=== PATIENT | male | born 1950 | race Caucasian/White ===

== ENCOUNTER 2016-08-10 06:05 | Day surgery (SDC) | payer MEDICARE, OTHER ==
[~2016-08-10] VITALS: Ht 188 cm; Wt 183.5 kg
[~2016-08-10 06:05] MED LIST: ASPI-93 PO; ATEN-36 PO; FURO-154 PO; PLEXUS PROBIO PO; PLEXUS SLIM PO; POTA10TA16 PO; [UNRECOGNIZED DRUG - OTHER] PO
--- OUTSIDE RECORDS SUMMARY | 2016-08-10 06:08 | XMS REPORT ---
Author Author Michael Sánchez Organization e[employer] Address Unknown Phone Unavailable Care Team Providers Care Quality Assurance Coordinator Name Role Phone Michael Sánchez CP Unavailable Allergies No Known Allergies Problems Problem Type Condition Code Onset Dates Condition Status Problem Gastro-esophageal reflux disease without esophagitis K21.9 Active Problem Morbid (severe) obesity due to excess calories E66.01 Active Problem Unspecified diastolic (congestive) heart failure I50.30 Active Problem Chronic atrial fibrillation I48.2 Active Assessment Unspecified diastolic (congestive) heart failure I50.30 Active Medications Medication Code System Code Instructions Start Date End Date Status Dosage Potassium Chloride Aminata ER [facility] [address]-44 10 MEQ Orally once daily Jan 13, 2016 1 tablet Lasix [facility] NAMED [facility] [address]-14 20 MG Orally every 12 hours Jan 13, 2016 1 tablet Aspirin EC [facility] NAMED [facility] [address]-74 325 MG Orally Once a day Jan 13, 2016 July 11, 2016 1 tablet Atenolol [facility] NAMED [facility] [address]-81 25 MG Orally Once a day 1 tablet Procedures Procedure Coding System Code Date COMPLETE CBC W/AUTO DIFF WBC CPT-4 95066 Feb 24, 2016 Results Name Result Date Reference Range Unit Abnormality Flag CBC With Platelet and Differential ----Absolute Eosinophils 0.07 [id number] 0.00-0.50 10*3 ----Absolute Monocytes 0.66 05636020 0.30-1.00 10*3 ----Neutrophils 60 44402877 51-75 % ----Absolute Basophils 0.03 17086859 0.00-0.20 10*3 ----MPV 10.4 41945815 8.8-14.8 fL ----Monocytes 10 09205742 4-11 % ----RDW 13.2 40045008 11.5-14.5 % ----Lymphocytes 29 47488733 20-46 % ----MCHC 33.5 15050613 32.0-36.0 g/dL ----MCH 32.6 53162698 27.0-32.0 pg H ----MCV 97.3 13112349 82.0-99.0 fL ----Immature Granulocytes 0.1 77051614 0.0-1.0 % ----Platelet Count 168 [id number] 150-400 K/uL ----Absolute Lymphocytes 1.96 71168256 0.80-3.30 10*3 ----Absolute Neutrophils 4.12 46521178 1.90-7.00 10*3 ----Eosinophils 1 80055903 0-4 % ----Basophils 0 44507586 0-2 % ----WBC 6.8 71370609 4.8-10.8 K/uL ----RBC 4.42 [id number] 4.60-6.20 10*6/uL L ----HGB 14.4 12959957 14.0-18.0 g/dL ----HCT 43.0 54141527 42.0-52.0 % Summary Purpose eClinicalWorks Submission
--- OUTSIDE RECORDS SUMMARY | 2016-08-10 06:08 | XMS REPORT | Summary of Care ---
Author Author Ren Marin M.D. Unknown Address [address] [place] [address] [place] [address] Phone Unavailable Care Team Providers Care Immersion Metalcleaner Name Role Phone Michael Sánchez Unavailable Unavailable Unavailable Unavailable Functional Status Name Dates Details Functional status health issues are not documented Status: Name Dates Details Cognitive status health issues are not documented Status: Problems Name Dates Details Sleep apnea (780.57, G47.30) Status: Active History of Ureteral stricture, left (593.3, N13.5) Status: Resolved History of Left ureteral calculus (592.1, N20.1) Status: Resolved Hematuria (599.70, R31.9) Status: Active Right kidney stone (592.0, N20.0) Status: Active Medications Name Dates Details Atenolol 25 MG Oral Tablet Active Aspirin EC 325 MG Oral Tablet Delayed Release * Refills: 0 Active Lasix 20 MG Oral Tablet * Refills: 0 Active Potassium Chloride 10 MEQ TBCR * Refills: 0 Active Allergies and Adverse Reactions Name Dates Details No Known Allergies (Allergy) Status: Active Past Medical History Name Dates Details History of atrial fibrillation (V12.59, Z86.79) Status: Resolved History of Left ureteral calculus (592.1, N20.1) Status: Resolved History of Postoperative follow-up (V67.00, Z09) Status: Resolved History of Prophylactic antibiotic (V58.62, Z79.2) Status: Resolved History of Ureteral stricture, left (593.3, N13.5) Status: Resolved History of Water retention (276.69, E87.70) Status: Resolved Procedures Procedure Dates Details History of Reported Hx Of Hip Replacement - Bilateral History of Cystoscopy (Diagnostic) History of Cystoscopy With Insertion Of Urethral Stent History of Cystoscopy With Pyeloscopy With Lithotripsy Procedures not documented Immunization Name Dates Details Immunizations not documented Family History Name Dates Details No family history of breast cancer Comments: Family History Status: Active Name Dates Details Family history of kidney disease (V18.69, Z84.1) Status: Active Family history of cerebrovascular accident (CVA) (V17.1, Z82.3) Status: Active Name Dates Details Family history of malignant neoplasm of testis (V16.43, Z80.43) Status: Active Social History Name Dates Details - Status: Name Dates Details Former smoker Vital Signs Date Test Result Details 03-Feb-2016 09:36 BP Systolic 126 mm[Hg] Status: Comments: Location: ; Position: BP Diastolic 68 mm[Hg] Status: Comments: Location: ; Position: Heart Rate 82 /min Status: Comments: Location: ; Height 74 in Status: Weight 400 lb Status: Body Mass Index Calculated 51.36 kg/m2 Status: Body Surface Area Calculated 2.92 m2 Status: 29-Jan-2016 14:27 BP Systolic 114 mm[Hg] Status: Comments: Location: ; Position: BP Diastolic 74 mm[Hg] Status: Comments: Location: ; Position: Heart Rate 88 /min Status: Comments: Location: ; Height 74 in Status: Weight 400 lb Status: Body Mass Index Calculated 51.36 kg/m2 Status: Body Surface Area Calculated 2.92 m2 Status: Results Date Description Value Details 29-Jan-2016 17:34 CYTOLOGY - URINE 4444 CYTOLOGY Specimen referred to [facility]. Report to follow. 01-Feb-2016 07:54 PSA ( PROSTATE SPECIFIC ANTIGEN) 3100 PROSTATE SPECIFIC ANTIGEN 0.360 ng/mL Range: 0.000-4.000 Plan of Care Name Dates Details Planned Observations Planned Goals not documented Planned Encounters Appointment; Provider: Ren Marin M.D. On 04-May-2016 09:30 Instructions Name Dates Details Instructions not documented Encounters Appointment; Ren Marin M.D. Encounter Diagnosis: Problem not documented On 03-Feb-2016 09:45 Appointment; Ren Marin M.D. Encounter Diagnosis: Problem not documented On 29-Jan-2016 14:30 Appointment; Ren Marin M.D. Encounter Diagnosis: Problem not documented On 29-Apr-2015 15:00 Appointment; Ren Marin M.D. Encounter Diagnosis: Problem not documented On 20-Apr-2015 10:45 Appointment; Ren Marin M.D. Encounter Diagnosis: Problem not documented On 15-Apr-2015 14:00
--- OUTSIDE RECORDS SUMMARY | 2016-08-10 06:08 | XMS REPORT | Summary of Care ---
Author Author Ren Marin M.D. Unknown Address [address] [place] [address] [place] [address] Phone Unavailable Care Team Providers Care Annealer Helper Name Role Phone No Assigned PCP-Pt Confirmed PP Unavailable Unavailable Unavailable Functional Status Functional Status Health Issues* Name Dates Details Functional status health issues are not documented Status: Cognitive Status Health Issues* Name Dates Details Cognitive status health issues are not documented Status: Problems Name Dates Details Prophylactic antibiotic (V58.62, Z79.2) Status: Active Retained ureteral stent (V43.89, Z96.0) Status: Active Left ureteral calculus (592.1, N20.1) Status: Active Ureteral stricture, left (593.3, N13.5) Status: Active Medications Name Dates Details Tamsulosin HCl - 0.4 MG Oral Capsule TAKE 1 TABLET BY MOUTH DAILY * Started 15-Apr-2015 Active Allergies and Adverse Reactions Name Dates Details No Known Allergies Status: Active Past Medical History Name Dates Details History of atrial fibrillation (V12.59, Z86.79) Status: Resolved History of Postoperative follow-up (V67.00, Z09) Status: Resolved History of Right kidney stone (592.0, N20.0) Status: Resolved History of sleep apnea (V13.89, Z87.09) Status: Resolved Procedures Procedure Dates Details History of Reported Hx Of Hip Replacement - Bilateral History of Cystoscopy (Diagnostic) History of Cystoscopy With Insertion Of Urethral Stent History of Cystoscopy With Pyeloscopy With Lithotripsy Procedures not documented Immunization Name Dates Details Immunizations not documented Family History Unknown Family Member* Name Dates Details No family history of breast cancer Comments: Family History Status: Active Mother* Name Dates Details Family history of kidney disease (V18.69, Z84.1) Status: Active Family history of cerebrovascular accident (CVA) (V17.1, Z82.3) Status: Active Brother* Name Dates Details Family history of malignant neoplasm of testis (V16.43, Z80.43) Status: Active Social History Name Dates Details Smoking Status* Former smoker Vital Signs Date Test Result Details 29-Apr-2015 14:49 BP Systolic 146 mm[Hg] Status: BP Diastolic 91 mm[Hg] Status: Heart Rate 93 /min Status: 20-Apr-2015 10:48 BP Systolic 143 mm[Hg] Status: BP Diastolic 88 mm[Hg] Status: Heart Rate 119 /min Status: Height 74 in Status: Weight 400 lb Status: Body Mass Index Calculated 51.36 kg/m2 Status: Body Surface Area Calculated 2.92 m2 Status: 15-Apr-2015 13:59 BP Systolic 161 mm[Hg] Status: BP Diastolic 83 mm[Hg] Status: Heart Rate 90 /min Status: Height 74 in Status: Weight 400 lb Status: Body Mass Index Calculated 51.36 kg/m2 Status: Body Surface Area Calculated 2.92 m2 Status: Results Date Description Value Details 20-Apr-2015 10:49 Xray ABD ( KUB) Comments: Exam Date: 04/20/2015 09: 59Dictation Date: 04/20/2015 10:49 X ABDOMEN (1V) (Better) Plan of Care Planned Observations* Name Dates Details Planned Goals not documented Goal Planned Encounters* Appointment; Provider: Ren Marin On 21-Apr-2015 11:45 Instructions * Instructions not documented Encounters Appointment; Ren Marin Encounter Diagnosis: Problem not documented On 29-Apr-2015 15:00 Appointment; Ren Marin Encounter Diagnosis: Problem not documented On 20-Apr-2015 10:45 Appointment; Ren Marin Encounter Diagnosis: Problem not documented On 15-Apr-2015 14:00
--- OUTSIDE RECORDS SUMMARY | 2016-08-10 06:08 | XMS REPORT | Summary of Care ---
Author Author Ren Marin M.D. Unknown Address [address] [place] [address] [place] [address] Phone Unavailable Care Team Providers Care Wastewater Analyst Name Role Phone Ren Marin M.D. Unavailable Unavailable Michael Sánchez Unavailable Unavailable Unavailable Unavailable Functional Status Name Dates Details Functional status health issues are not documented Status: Name Dates Details Cognitive status health issues are not documented Status: Problems Name Dates Details Sleep apnea (780.57, G47.30) Status: Active History of Ureteral stricture, left (593.3, N13.5) Status: Resolved History of Left ureteral calculus (592.1, N20.1) Status: Resolved Prophylactic antibiotic (V58.62, Z79.2) Status: Active Hematuria (599.70, R31.9) Status: Active Right kidney [...] smoker Vital Signs Date Test Result Details 04-May-2016 09:27 BP Systolic 126 mm[Hg] Status: Comments: Location: ; Position: BP Diastolic 75 mm[Hg] Status: Comments: Location: ; Position: Heart Rate 86 /min Status: Comments: Location: ; Physical Findings 20 Status: Comments: Respiration Results Date Description Value Details Results not documented Plan of Care Name Dates Details Planned Observations Planned Goals not documented Planned Encounters Appointment; Provider: Ren Marin M.D. On 08:30 Interventions Provided Medication Changes* Ciprofloxacin HCl - 500 MG Oral Tablet - Completed Instructions Name Dates Details Instructions not documented [...]
--- OUTSIDE RECORDS SUMMARY | 2016-08-10 06:08 | XMS REPORT ---
Author Author Michael Sánchez Organization [employer] Address Unknown Phone Unavailable Care Team Providers Care Aircraft Cylinder Mechanic Name Role Phone Michael Sánchez CP Unavailable Allergies No Known Allergies Problems Problem Type Condition Code Onset Dates Condition Status Problem Morbid (severe) obesity due to excess calories E66.01 Active Problem Chronic atrial fibrillation I48.2 Active Problem Gastro-esophageal reflux disease without esophagitis K21.9 Active Assessment Anemia, unspecified D64.9 Active Assessment Unspecified atrial fibrillation I48.91 Active Assessment Shortness of breath R06.02 Active Medications Medication Code System Code Instructions Start Date End Date Status Dosage Prilosec OTC [facility] [address] 20 MG Orally Once a day Jan 13, 2016 1 tablet Aspirin EC [facility] [address]-24 325 MG Orally Once a day Jan 13, 2016 July 11, 2016 1 tablet Lasix [facility] [address]-52 20 MG Orally every 12 hours Jan 13, 2016 1 tablet Potassium Chloride Aminata ER [facility] [address]-61 10 MEQ Orally once daily Jan 13, 2016 1 tablet Atenolol [facility] [address]-12 25 MG Orally Once a day 1 tablet Procedures Procedure Coding System Code Date COMPREHENSIVE METABOLIC PANEL CPT-4 07940 Jan 20, 2016 TSH CPT-4 12976 Jan 20, 2016 COMPLETE CBC W/AUTO DIFF WBC CPT-4 58304 Jan 20, 2016 URINALYSIS WITH MICROSCOPIC CPT-4 49733 Jan 20, 2016 LIPID PANEL CPT-4 48486 Jan 20, 2016 Results Name Result Date Reference Range Unit Abnormality Flag eGFR ----eGFR >60 22988664 >60 mL/min Non-HDL Cholesterol ----Non-HDL Cholesterol 125 79869416 0-159 mg/dL Summary Purpose eClinicalWorks Submission
--- OUTSIDE RECORDS SUMMARY | 2016-08-10 06:08 | XMS REPORT ---
Author Author Winnie Wade Organization [employer] Address Unknown Phone Unavailable Care Team Providers Care Chemical Economist Name Role Phone Winnie Wade CP Unavailable Allergies, Adverse Reactions, Alerts Substance Reaction Event Type N.K.D.A. Info Not Available Non Drug Allergy Problems Problem Type Condition Code Onset Dates Condition Status Problem Chronic atrial fibrillation I48.2 Active Assessment Fever, unspecified R50.9 Active Problem Morbid (severe) obesity due to excess calories E66.01 Active Assessment Chronic atrial fibrillation I48.2 Active Assessment Edema, unspecified R60.9 Active Assessment Morbid (severe) obesity due to excess calories E66.01 Active Medications Medication Code System Code Instructions Start Date End Date Status Dosage Atenolol [facility] [address]-93 25 MG Orally Once a day 1 tablet Procedures Procedure Coding System Code Date OFFICE VISIT, EST-LOW COMPLEXITY (15 MIN.) CPT-4 11335 Dec 28, 2015 [facility] visit Established Patient CPT-4 G0467 Dec 28, 2015 Vital Signs Date/Time: Dec 28, 2015 Temperature 97.5 F Height 72 in Weight 405.1 lbs Blood Pressure Diastolic 90 mm Hg Blood Pressure Systolic 120 mm Hg Cardiac Monitoring Heart Rate 72 /min BMI 54.94 Index Oximetry 98 % Results Name Result Date Reference Range Unit Abnormality Flag Venous Doppler Summary Purpose eClinicalWorks Submission
--- OUTSIDE RECORDS SUMMARY | 2016-08-10 06:08 | XMS REPORT | Summary of Care ---
Author Author Ren Marin M.D. Unknown Address [address] [place] [address] [place] [address] Phone Unavailable Care Team Providers Care Manager Library Name Role Phone Ren Marin M.D. Unavailable [...] History of Cystoscopy With Pyeloscopy With Lithotripsy CYTOLOGY - URINE 4444 Ordered: 04-May-2016 Immunization Name Dates Details Immunizations not documented [...] - 500 MG Oral Tablet - Completed Labs/Procedures/Imaging* CYTOLOGY - URINE 4444; To be Done: 04 May 2016 Instructions Name Dates Details Instructions not documented [...]
--- OUTSIDE RECORDS SUMMARY | 2016-08-10 06:09 | XMS REPORT ---
Author Author Michael Sánchez Organization [employer] Address Unknown Phone Unavailable Care Team Providers Care Refrigeration Mechanic Name Role Phone Michael Sánchez CP Unavailable Allergies, Adverse Reactions, Alerts Substance Reaction Event Type N.K.D.A. Info Not Available Non Drug Allergy Problems Problem Type Condition Code Onset Dates Condition Status Assessment Chronic atrial fibrillation I48.2 Active Problem Gastro-esophageal reflux disease without esophagitis K21.9 Active Problem Morbid (severe) obesity due to excess calories E66.01 Active Problem Unspecified diastolic (congestive) heart failure I50.30 Active Assessment Hematuria, unspecified R31.9 Active Assessment Anemia, unspecified D64.9 Active Problem Chronic atrial fibrillation I48.2 Active Assessment Unspecified diastolic (congestive) heart failure I50.30 Active Medications Medication Code System Code Instructions Start Date End Date Status Dosage Atenolol [facility] [address]-03 25 MG Orally Once a day 1 tablet Aspirin EC [facility] [address]-31 325 MG Orally Once a day Jan 13, 2016 July 11, 2016 1 tablet Lasix [facility] [address]-80 20 MG Orally every 12 hours Jan 13, 2016 1 tablet Potassium Chloride Aminata ER [facility] [address]-75 10 MEQ Orally once daily Jan 13, 2016 1 tablet Procedures Procedure Coding System Code Date OFFICE VISIT, EST-LOW COMPLEXITY (15 MIN.) CPT-4 52933 Jan 27, 2016 [facility] visit Established Patient CPT-4 G0467 Jan 27, 2016 Vital Signs Date/Time: Jan 27, 2016 Temperature 98.0 F Height 72 in Weight 393.6 lbs Blood Pressure Diastolic 86 mm Hg Blood Pressure Systolic 134 mm Hg Cardiac Monitoring Heart Rate 85 /min BMI 53.38 Index Oximetry 97 % Respiratory Rate 18 /min Results No Known Results Summary Purpose eClinicalWorks Submission
--- OUTSIDE RECORDS SUMMARY | 2016-08-10 06:09 | XMS REPORT | Summary of Care ---
Author Author Ren Marin M.D. Unknown Address [address] [place] [address] [place] [address] Phone Unavailable Care Team Providers Care Medical Office Representative Name Role Phone Ren Marin M.D. Unavailable [...] m2 Status: Results Date Description Value Details Results not documented Plan of Care Name Dates Details Planned Observations Planned Goals not documented Planned Encounters Appointment; Provider: Ren Marin M.D. On 04-May-2016 09:30 Interventions Provided Medication Changes* Ciprofloxacin HCl - [...]
--- OUTSIDE RECORDS SUMMARY | 2016-08-10 06:09 | XMS REPORT ---
Author Author Michael Sánchez Organization [employer] Address Unknown Phone Unavailable Care Team Providers Care Fishing Game Warden Name Role Phone Michael Sánchez CP Unavailable Allergies No Known Allergies Problems Problem Type Condition Code Onset Dates Condition Status Problem Morbid (severe) obesity due to excess calories E66.01 Active Problem Chronic atrial fibrillation I48.2 Active Problem Gastro-esophageal reflux disease without esophagitis K21.9 Active Medications No Known Medications Results No Known Results Summary Purpose eClinicalWorks Submission
--- OUTSIDE RECORDS SUMMARY | 2016-08-10 06:09 | XMS REPORT ---
Author Author Winnie Wade [facility] eClinicalWorks Address Unknown Phone Unavailable Care Team Providers Care Metalizing Machine Operator Name Role Phone Myeshatisha Winnie CP Unavailable Allergies No Known Allergies Problems Problem Type Condition Code Onset Dates Condition Status Problem Chronic atrial fibrillation I48.2 Active Assessment Fever, unspecified R50.9 Active Problem Morbid (severe) obesity due to excess calories E66.01 Active Assessment Edema, unspecified R60.9 Active Medications Medication Code System Code Instructions Start Date End Date Status Dosage Atenolol [facility] [address]-51 25 MG Orally Once a day 1 tablet Procedures Procedure Coding System Code Date IH CMP CPT-4 26181 Dec 28, 2015 CBC W/ PLATELET NO DIFF CPT-4 45510 Dec 28, 2015 Results Name Result Date Reference Range Unit Abnormality Flag CBC With Platelet and Differential ----Absolute Eosinophils 0.07 [id number] 0.00-0.50 10*3 ----Absolute Monocytes 0.85 12373767 0.30-1.00 10*3 ----Neutrophils 73 18468440 51-75 % ----Absolute Basophils 0.02 19903934 0.00-0.20 10*3 ----MPV 10.4 17107126 8.8-14.8 fL ----Monocytes 10 67109182 4-11 % ----RDW 13.6 05534948 11.5-14.5 % ----Lymphocytes 16 23585321 20-46 % L ----MCHC 35.0 50948362 32.0-36.0 g/dL ----MCH 33.9 30617802 27.0-32.0 pg H ----MCV 96.9 26807674 82.0-99.0 fL ----Immature Granulocytes 0.1 98285560 0.0-1.0 % ----Platelet Count 182 46658409 150-400 K/uL ----Absolute Lymphocytes 1.34 92929323 0.80-3.30 10*3 ----Absolute Neutrophils 6.16 42788884 1.90-7.00 10*3 ----Eosinophils 1 75332139 0-4 % ----Basophils 0 60982326 0-2 % ----WBC 8.4 20151228 4.8-10.8 K/uL ----RBC 4.19 20151228 4.60-6.20 10*6/uL L ----HGB 14.2 59304518 14.0-18.0 g/dL ----HCT 40.6 48071775 42.0-52.0 % L In House CMP ----BUN 13 20151228 7 - 22 mg/DL ----Calcium 9.0 20151228 8.0 - 10.3 mg/DL ----Alkaline Phosphatase 42* 20151228 53 - 128 u/L ----Creatinine 1.0 24305762 0.6 - 1.2 mg/DL ----AST 31 20151228 11 - 38 u/L ----Total Bilirubin 0.7 10929222 0.2 - 1.6 mg/DL ----ALT 21 20151228 10 - 47 u/L ----Total Protein 7.6 53512687 6.4 - 8.1 G/DL ----Chloride 99 20151228 98 - 108 mmol/L ----Glucose 100 67558046 73 - 118 mg/DL ----Potassium 4.4 20151228 3.6 - 5.1 mmol/L ----Albumin 3.4 14343583 3.3 - 5.5 g/DL ----EGFR >60 20151228 ----CO2 27 20151228 18 - 33 mmol/L ----Sodium 137 91135836 128 - 145 mmol/L Summary Purpose eClinicalWorks Submission
--- OUTSIDE RECORDS SUMMARY | 2016-08-10 06:09 | XMS REPORT | Continuity of Care Document ---
Author Author [facility] Organization [facility] Address Unknown Phone Unavailable Support Name Relationship Address Phone ROSALBA LEMUS APRN Caregiver [address] [place] [address] Unavailable CHE MYERS MD Caregiver [address] [place] [address] [place] [address] Unavailable DAVID CARVALHO Next Of Kin [address] [place] [address] Insurance Providers Guarantor Reji Carvalho Address [address] [place] [address] Email DENIED/NO TO PT PORT Payer Medicare Policy Number [id number] Subscriber's Name Reji Carvalho Relationship 18 Self Payer Other A Insurance Policy Number [id number] Subscriber's Name Reji Carvalho Relationship 18 Self Group Number [id number] Chief Complaint and Reason for Visit Chief Complaint Dyspnea/Respdistress Reason for Visit [id number] Problems Active Problems Medical Problem Onset Date Status Ureterolithiasis Unknown Acute Past Problems Medical Problem Onset Date Fluid retention in tissues Unknown Medications Current Home Medications Medication Dose Units Route Directions Days Qty Instructions Start Date Aspirin (Sonya Aspirin) 325 Mg Tablet 325 Mg Oral Give With Supper 01/16/13 Atenolol 25 Mg Tablet 25 Mg Oral Give With Supper 12/19/12 Furosemide (Lasix) 20 Mg Tablet 1 Tab Oral Twice A Day 3 Days 6 Tablet 01/08/16 Plexus Nerve 2 Tab Oral Daily VITAMIN B, ZINC, COPPER, MAGNESIUM BLEND 01/08/16 Plexus Probio 5 2 Tab Oral Daily 01/08/16 Plexus Slim 1 Dose Oral Daily CHROMIUM, ALPHA LIPOIC ACID, CHLORGENIC ACID, GARCINIA CAMBOGIA 01/08/16 Past Home Medications Medication Directions Ordered Status Amiodarone Hcl (Pacerone) 200 Mg Tablet, 200 Mg Oral Twice A Day 11/19/08 Discontinued Aspirin 325 Mg Tablet, 325 Mg Oral Bedtime 01/20/12 Discontinued Aspirin 81 Mg Tablet, 81 Mg Oral Daily 09/15/09 Discontinued Calcium Carbonate/Vitamin D3 (Calcium + D 600 Mg Tablet) 1 Tab Tablet, 1 Tab Oral Twice A Day 09/15/09 Discontinued Cholecalciferol (Vitamin D) 1,000 Unit Capsule, 1000 Unit Oral Daily Discontinued Diclofenac Sodium 75 Mg Tablet.dr, 75 Mg Oral Twice A Day 01/20/12 Discontinued Ferrous Fumarate (Iron) 55 ( 18 )Mg Tablet.sa, 55 ( Oral Daily 01/20/12 Discontinued Meloxicam (Mobic) 15 Mg Tablet, 15 Mg Oral Daily 09/06/11 Discontinued Meloxicam (Mobic) 15 Mg Tablet, 15 Mg Oral Daily 11/19/08 Discontinued Metoprolol Tartrate 25 Mg Tablet, 25 Mg Oral Daily 11/19/08 Discontinued Pradaxa , 150 Twice A Day 09/06/11 Discontinued Vits W-Ca,Fe,Fa(<1MG) () 1 Tab Tablet, 1 Tab Oral Twice A Day 09/15/09 Discontinued Sotalol Hcl (Sotalol) 120 Mg Tablet, 120 Mg Oral Twice A Day 09/06/11 Discontinued Tramadol Hcl 50 Mg Tablet, 50 Mg Oral Twice A Day 09/15/09 Discontinued Warfarin Sodium (Coumadin) 5 Mg Tablet, 5 Mg Oral Daily 11/19/08 Discontinued Social History Social History Problem Response Recorded Date/Time Onset Date Status Chewing Tobacco Status No 01/15/2013 9:37am Not Applicable Not Applicable Hx Substance Use No 01/08/2016 11:40am Not Applicable Not Applicable Hx Alcohol Use Y RARE 01/08/2016 11:40am Not Applicable Not Applicable Has the pt used tobacco in the last 12 months No 04/21/2015 10:19am Not Applicable Not Applicable Query Response Start Date Stop Date Smoking Status Never smoker Hospital Discharge Instructions No hospital discharge instructions. Plan of Care Discharge Date 01/08/16 1:25pm Disposition 01 DISCHARGED HOME, SELF-CARE Condition at Discharge Stable Instructions/Education Provided Fluid Restricted Diet Prescriptions See Medication Section Referrals ROSALBA LEMUS APRN Address: [address] [place] [address] MCKENNA PATTERSON [id number] Note: Follow-up next week for reevaluation Additional Instructions/Education Follow-up with your primary medical physician or Dr. Rowan on monday Care Plan and Goals Physician Care Plan Problem: Fluid retention Goal: Follow up with primary care provider Instructions: Take medications and follow care plan as discussed/written Functional Status No functional status results. Allergies, Adverse Reactions, Alerts Allergen Type Severity Reaction Status Last Updated No Known Drug Allergies Allergy Unknown Active 04/14/15 Immunizations Query Response on File Recorded Date/Time Hx Influenza Vaccination No 04/21/15 10:19am Hx Pneumococcal Vaccination No 04/21/15 10:19am Hx Influenza Vaccination No 04/21/15 10:19am Influenza Vaccine Hx NONE 01/08/16 11:40am Tetanus Diptheria Vaccine History UNKNOWN 01/08/16 11:40am Vital Signs Acute Vital Signs Vital Response Date/Time Temperature (Fahrenheit) 98.0 deg F (96.8 - 99.1) 01/08/2016 1:20pm Temperature (Calculated Celsius) 36.98614 degrees C (36.0 - 37.3) 01/08/2016 1:20pm Pulse Rate (adult) 74 bpm (60 - 100) 01/08/2016 1:20pm Respiratory Rate 16 breaths/min (10 - 20) 01/08/2016 1:20pm O2 Sat by Pulse Oximetry 94 % (90 - 100) 01/08/2016 1:20pm Blood Pressure 124/64 mm Hg 01/08/2016 1:20pm Height (Feet) 6 feet 01/08/2016 11:36am Height (Inches) 2.00 inches 01/08/2016 11:36am Weight (Kilograms) 191.500 kg 01/08/2016 11:36am Body Mass Index (BMI) 54.0 01/08/2016 11:36am Results Laboratory Results Test Name Result Units Flags Reference Collection Date/Time Result Date/ Time Comments White Blood Count 6.4 T/MM3 4.5-11.0 01/08/2016 12:09pm 01/08/2016 12: 15pm Red Blood Count 3.71 M/MM3 L 4.50-5.90 01/08/2016 12:09pm 01/08/2016 12: 15pm Hemoglobin 12.3 GM/DL L 13.5-17.5 01/08/2016 12:09pm 01/08/2016 12:15pm Hematocrit 36.9 % L 41-53 01/08/2016 12:09pm 01/08/2016 12:15pm Mean Corpuscular Volume 99.5 UM3 80-100 01/08/2016 12:09pm 01/08/2016 12:15pm Mean Corpuscular Hemoglobin 33.2 UUG 26-34 01/08/2016 12:09pm 2015 12:15pm Mean Corpuscular Hemoglobin Concent 33.3 GM/DL 31-37 01/08/2016 12:09pm 01/08/2016 12:15pm RDW Standard Deviation 46.0 FL 36.9-50.2 01/08/2016 12:09pm 01/08/2016 12:15pm Platelet Count 148 T/MM3 130-400 01/08/2016 12:09pm 01/08/2016 12:15pm Mean Platelet Volume 10.0 UM3 9.4-12.4 01/08/2016 12:09pm 01/08/2016 12 :15pm Neutrophils (%) (Auto) 73.8 % H 33-66 01/08/2016 12:09pm 01/08/2016 12: 15pm Lymphocytes (%) (Auto) 17.8 % L 23-45 01/08/2016 12:09pm 01/08/2016 12: 15pm Monocytes (%) (Auto) 7.1 % 0-9.0 01/08/2016 12:09pm 01/08/2016 12:15pm Eosinophils (%) (Auto) 0.6 % 0-4 01/08/2016 12:09pm 01/08/2016 12:15pm Basophils (%) (Auto) 0.5 % 0-2 01/08/2016 12:09pm 01/08/2016 12:15pm Immature Granulocyte % (Auto) 0.2 % 0.0-0.5 01/08/2016 12:09pm 2015 12:15pm Absolute Neutrophils (auto) 4.7 T/MM3 1.8-7.7 01/08/2016 12:09pm 2015 12:15pm Absolute Lymphocytes (auto) 1.1 T/MM3 1-4.8 01/08/2016 12:09pm 2015 12:15pm Absolute Monocytes (auto) 0.5 T/MM3 0-0.8 01/08/2016 12:09pm 2015 12:15pm Absolute Eosinophils (auto) 0.0 T/MM3 0-0.5 01/08/2016 12:09pm 2015 12:15pm Absolute Basophils (auto) 0.0 T/MM3 0-0.2 01/08/2016 12:09pm 2015 12:15pm Absolute Immature Granulocyte (auto 0.01 T/MM3 0.00-0.03 01/08/2016 12: 09pm 01/08/2016 12:15pm Icterus Index < 2 0-7 01/08/2016 12:09pm 01/08/2016 12:26pm Chemistry Specimen Hemolysis < 15 0-25 01/08/2016 12:09pm 01/08/2016 12:26pm 0-25: Specimen Exhibited No Hemolysis. Turbidity < 20 0-20 01/08/2016 12:09pm 01/08/2016 12:26pm Sodium Level 140 MEQ/L 134-144 01/08/2016 12:09pm 01/08/2016 12:26pm Potassium Level 4.2 MEQ/L 3.6-5 01/08/2016 12:09pm 01/08/2016 12:26pm Chloride Level 106 MEQ/L 98-107 01/08/2016 12:09pm 01/08/2016 12:26pm Carbon Dioxide Level 25 MEQ/L 22-30 01/08/2016 12:09pm 01/08/2016 12: 26pm Anion Gap 9 MEQ/L 5-15 01/08/2016 12:09pm 01/08/2016 12:26pm Blood Urea Nitrogen 19.0 MG/DL 9-20 01/08/2016 12:09pm 01/08/2016 12: 26pm Creatinine 1.0 MG/DL 0.8-1.5 01/08/2016 12:09pm 01/08/2016 12:26pm BUN/Creatinine Ratio 19 RATIO 6-26 01/08/2016 12:09pm 01/08/2016 12: 26pm Glomerular Filtration Rate Calc 75 01/08/2016 12:09pm 01/08/2016 12 :26pm Glucose Level 106 MG/DL 75-110 01/08/2016 12:09pm 01/08/2016 12:26pm Calculated Osmolality 271 MOSM/KG 261-280 01/08/2016 12:09pm 2015 12:26pm Calcium Level 8.9 MG/DL 8.4-10.2 01/08/2016 12:09pm 01/08/2016 12:26pm Troponin I < 0.012 ng/ml 0-0.12 01/08/2016 12:09pm 01/08/2016 12:38pm Troponin values with a difference of 55% increase from orginal troponin value represent a true biological DELTA value. (%increase Calc=Orginal Troponin value, divided by subsequent Troponin value, multiplied by 100) RC-Gbw-S-Type Natriuretic Peptide 1810 PG/ML H 0-175 01/08/2016 12:09pm 01/08/2016 12:38pm Rule in cut points: <50 years old=450; 50-75 years old=900; >75 years old=1800; When utilizing ProBNP rule-in cut points, adjustment for impaired renal function is typically not required. Magnesium Level 2.0 MG/DL 1.6-2.3 01/08/2016 12:09pm 01/08/2016 12: 26pm Name: REJI CARVALHO Unit #: [id number] : 1950 Sex: M Admit Date: Loc / Svc: ED Discharge Date: DIAGNOSTIC IMAGING REPORT Report #: [id number] [place], [place] Indication: ITS.REASON: exertional dyspnea PROCEDURE: CHEST 1 VIEW: Encounter: Initial Comparison: December 19, 2012 Findings: Lungs are stable in appearance. Motion artifact. No focal consolidative pneumonia, obvious pleural effusion or gross pneumothorax. Cardiac silhouette is upper limits of normal in size. Mediastinal contours are normal. Pulmonary vascularity is somewhat difficult to evaluate with the motion. Impression: Somewhat limited exam due to motion artifact. No focal pneumonia or overt congestive failure. . Procedures Procedure Status Date Provider(s) EXTREMITY STUDY Completed 12/29/15 Encounters Encounter Location Arrival/Admit Date Discharge/Depart Date Attending Provider Departed Emergency Room [facility] 09/02/16 11:33am 01/08/16 1: 25pm CHE MYERS MD Registered Clinic [facility] 12/29/15 10:38am ROSALBA LEMUS APRN Recent Diagnosis
--- OUTSIDE RECORDS SUMMARY | 2016-08-10 06:09 | XMS REPORT | Summary of Care ---
Author Author Ren Marin M.D. Organization Unknown Address [address] [place] [address] [place] [address] Phone Unavailable Care Team Providers Care Scrap Iron Cutter Name Role Phone Ren Marin M.D. Unavailable Unavailable No Assigned PCP-Pt Confirmed PP Unavailable Functional Status Functional Status Health Issues* Name Dates Details Functional status health issues are not documented Status: Cognitive Status Health Issues* Name Dates Details Cognitive status health issues are not documented Status: Problems Name Dates Details Left ureteral calculus (592.1, N20.1) Status: Active Ureteral stricture, left (593.3, N13.5) Status: Active Medications Name Dates Details Ciprofloxacin HCl - 500 MG Oral Tablet TAKE 1 TABLET TWICE DAILY. Ren Marin M.D.* Started 15-Apr-2015 ActiveTamsulosin HCl - 0.4 MG Oral Capsule TAKE 1 TABLET BY MOUTH DAILY * Refills: 0 * Started 15-Apr-2015 Active Allergies and Adverse Reactions Name Dates Details No Known Allergies Status: Active Past Medical History Name Dates Details History of atrial fibrillation (V12.59, Z86.79) Status: Resolved History of Postoperative follow-up (V67.00, Z09) Status: Resolved History of Retained ureteral stent (V43.89, Z96.0) Status: Resolved History of Right kidney stone [...] smoker Vital Signs Date Test Result Details 20-Apr-2015 10:48 BP Systolic 143 mm[Hg] Status: [...] Details Results not documented Plan of Care Planned Observations* Name Dates Details Planned Goals not documented Goal Planned Encounters* Appointment; Provider: Ren Marin On 29-Apr-2015 15:00 * Appointment; Provider: Ren Marin On 21-Apr-2015 11:45 Instructions * Instructions not documented Encounters Appointment; Ren Marin Encounter Diagnosis: Problem not documented On 20-Apr-2015 10:45 Appointment; Ren Marin Encounter Diagnosis: Problem not documented On 15-Apr-2015 14:00
--- OUTSIDE RECORDS SUMMARY | 2016-08-10 06:09 | XMS REPORT | Summary of Care ---
Author Author Ren Marin M.D. Organization Unknown Address [address] [place] [address] [place] [address] Phone Unavailable Care Team Providers Care Supervisor Fireworks Assembly Name Role Phone Ren Marin M.D. Unavailable [...] Value Details 20-Apr-2015 10:49 Xray ABD ( IAN) Comments: Exam Date: 04/20/2015 09: 59Dictation Date: [...]
--- OUTSIDE RECORDS SUMMARY | 2016-08-10 06:10 | XMS REPORT | Summary of Care ---
Author Author Ren Marin M.D. Organization Unknown Address [address] [place] [address] [place] [address] Phone Unavailable Care Team Providers Care Home Restoration Service Supervisor Name Role Phone Ren Marin M.D. Unavailable [...] Ureteral stricture, left (593.3, N13.5) Status: Active Sleep apnea (780.57, G47.30) Status: Active Hematuria (599.70, R31.9) Status: Active Right kidney stone (592.0, N20.0) Status: Active Medications Name Dates Details Atenolol 25 MG Oral Tablet Active Aspirin EC 325 MG Oral Tablet Delayed Release * Refills: 0 Active Lasix 20 MG Oral Tablet * Refills: 0 Active Potassium Chloride 10 MEQ TBCR * Refills: 0 Active Ciprofloxacin HCl - 500 MG Oral Tablet take 1 tablet before cysto procedure with Dr. Marin. * Quantity: 1 Refills: 0 Ren Marin M.D. * Start 29-Jan-2016 Active Allergies and Adverse Reactions Name Dates Details No Known Allergies (Allergy) Status: Active Past Medical History Name Dates Details History of atrial fibrillation (V12.59, Z86.79) Status: Resolved History of Postoperative follow-up (V67.00, Z09) Status: Resolved History of Water retention (276.69, E87.70) Status: Resolved Procedures Procedure Dates Details History of Reported Hx Of Hip Replacement - Bilateral History of Cystoscopy (Diagnostic) History of Cystoscopy With Insertion Of Urethral Stent History of Cystoscopy With Pyeloscopy With Lithotripsy PSA ( PROSTATE SPECIFIC ANTIGEN) 3100 Ordered: 29-Jan-2016 Immunization Name Dates Details Immunizations not documented [...] smoker Vital Signs Date Test Result Details 29-Jan-2016 14:27 BP Systolic 114 mm[Hg] Status: [...] Encounters Appointment; Provider: Ren Marin M.D. On 03-Feb-2016 09:45 Interventions Provided Medication Changes* Ciprofloxacin HCl - 500 MG Oral Tablet - Start Labs/Procedures/Imaging* PSA ( PROSTATE SPECIFIC ANTIGEN) 3100; To be Done: 29 Jan 2016 Instructions Name Dates Details Instructions not documented Encounters Appointment; Ren Marin M.D. Encounter Diagnosis: Problem not documented On 29-Apr-2015 15:00 Appointment; Ren Marin M.D. Encounter Diagnosis: Problem not documented On 20-Apr-2015 10:45 Appointment; Ren Marin M.D. Encounter Diagnosis: Problem not documented On 15-Apr-2015 14:00
[2016-08-10 06:28] VITALS: Ht 188 cm; Wt 183.5 kg
[2016-08-10 06:30] VITALS: BP 125/91; PULSE 87; RESP 19; TEMP 97.5; O2SAT 94
[2016-08-10] MEDS ORDERED: LR 1,000 ML IV SCH (07:00)
[2016-08-10] MEDS ORDERED: LIDOCAINE 1% (10mg/ml) 2ml SDV INJ ONE (07:00)
--- NOTE | 2016-08-10 07:01 | ANESPREOP ---
Anesthesia Record Date and Time DATE: 08/10/16 TIME: 06:57 Pre-Op Diagnosis screwing Proposed Surgical Procedure COLONOSCOPY NPO since: mn Allergies: Coded Allergies: No Known Drug Allergies (Verified Allergy, Unknown, 04/14/15) Ht/Wt/BMI Height: 6 ' 2.00 " Weight: 183.500 kg BMI: 51.9 kg/m2 Vital Signs Date Time Temp Pulse Resp B/P Pulse Ox O2 Delivery O2 Flow Rate FiO2 08/10/16 06:30 97.5 87 19 125/91 94 Room Air Medications Inpatient Medications Current Medications Medications (Trade) Dose Ordered Sig/Zeenat Start Time Stop Time Status Last Admin Dose Admin Lactated Ringer's (Lactated Ringers) 1,000 ml @ 50 mls/hr Q20H 08/10/16 07:00 08/10/16 06:51 50 MLS/HR Aspirin (Sonya Aspirin) 325 Mg Tablet, 325 MG PO WS, (Reported) Last Taken: on 08/09/16 Atenolol (Atenolol) 25 Mg Tablet, 25 MG PO WS, ( Reported) Last Taken: on 08/09/16 Furosemide (Lasix) 20 Mg Tablet, 1 TAB PO BID Last Taken: on 08/09/16 Potassium Chloride (Klor-Con M10) 10 Meq Tablet, 1 TAB PO DAILY, (Reported) Last Taken: on 08/09/16 [plexus nerve] , 2 TAB PO DAILY, (Reported) VITAMIN B, ZINC, COPPER, MAGNESIUM BLEND Last Taken: on 08/08/16 [plexus probio 5] , 2 TAB PO DAILY, (Reported) Last Taken: on 08/08/16 [plexus slim] , 1 DOSE PO DAILY, (Reported) CHROMIUM, ALPHA LIPOIC ACID, CHLORGENIC ACID, GARCINIA CAMBOGIA Last Taken: on 08/08/16 Currently on Beta Ashish: Yes Beta Ashish Last Taken: 08-09-16 ATENOLOL 1999 Medical/Surgical History Anesthesia PMH: Reports: *Dyspnea (ON EXERTION), Arthritis (HIPS,KNEES), Cardiac Arrythmia (A-FIB, Dr. Rowan was seen in last 2 months, stress test 1 yr ago, o problems ), Deep Vein Thrombosis (LEG - IN 1970'S ([facility] TO [facility])), Obesity (morbid ), Pneumonia (HX: NONE RECENTLY), Sleep Apnea ( cpap ), Denies: *Angina, *Diabetes, *Hypertension (ON ATENOLOL FOR A-FIB, NOT HTN), *WA, Anesthesia Reactions (NO AIRWAY ISSUES KNOWN), Asthma, Blood Transfusion Reac, CHF, COPD, CVA/Stroke/TIA, Cancer, Clotting Problems, Glaucoma , Headaches, Hepatitis, Hiatal Hernia, Malignant Hyperthermia, Reflux, Renal Disease, Rheumatic Fever, Seizures, Thyroid Disease, Tuberculosis Smoking Status: Never smoker Substance Use Type: does not use Past Surgical History Orthopedic Surgeries: Yes - VINH JOSH Abdominal Surgeries: No Genitourinary Surgeries: Yes - CYSTO STENT INSERTION 12-20-12; LITHO Cardiac Surgeries: Yes - HEART CATH 5-7 YEARS AGO Endocrine Surgeries: No Reproductive Surgeries: No Neurological Surgeries: No Ear Surgeries: No Nose Surgeries: No Throat Surgeries: No Other Surgeries: Yes - OU CATARACT Anesthesia Adverse Reactions: FOUND none Family Hx of Anesthesia Advers: none Pertinent Findings EKG Rhythm: Atrial Fibrillation Physical Exam Respiratory: Bilat breath sounds equal, Lungs clear Cardiovascular: FOUND Regular rate, rhythm, FOUND No murmur Airway Assessment Mallampati Score: III TMD: 3 Fingerbreadths Neck Extension: Fair Overall Assessment: May Be Diff Mask Vent., May Be Diff Intubation ASA: 3 Plan Anesthesia Plan: TIVA, MAC Discussion Discussed risks/options/alternatives of anesthesia and questions answered. Patient consents. Nursing pain assessment noted. Attestation Statement Prior to the delivery of any anesthetic medication, I examined the patient, developed the plan, obtained the patient's consent and discussed the risk and benefits of the procedure with the patient/guardian. ADRIÁN POOLE CRNA Aug 10, 2016 07:00
[2016-08-10] MEDS ORDERED: FENTANYL 100mcg/2ml INJECTION ONE (07:06)
[2016-08-10] MEDS ORDERED: MIDAZOLAM 2mg/2ml INJECTION ONE (07:06)
[2016-08-10] MEDS ORDERED: KETAMINE 500mg/10ml INJECTION ONE (07:06)
[2016-08-10] MEDS ORDERED: PROPOFOL 200mg 20 ML IV ONE (07:06)
[2016-08-10] MEDS ORDERED: LIDOCAINE 2% (20mg/ml) 5ml PF SDV ONE (07:06)
[2016-08-10] MEDS ORDERED: CLINDAMYCIN 600mg IVPB 50 ML IV ONE (07:30)
[2016-08-10 07:51] VITALS: BP 108/66; PULSE 65; RESP 12; TEMP 97; O2SAT 92
--- NOTE | 2016-08-10 07:55 | ANESPO ---
Post-Op Note Date 08/10/16 Time: 07:56 Status Pt Participated in Evaluation: Pt participated in person Vital Signs Date Time Temp Pulse Resp B/P Pulse Ox O2 Delivery O2 Flow Rate FiO2 08/10/16 06:30 97.5 87 19 125/91 94 Room Air Respiratory Function: Airway patent Cardiovascular Function: Regular pulse Mental Status: Alert/oriented Pain Level Intensity: 0 Hydration: IV infusing Complications during Recovery None apparent Follow-Up Instructions Instructions Per Surgeon ADRIÁN POOLE CRNA Aug 10, 2016 07:55
[2016-08-10 08:00] VITALS: BP 96/51; PULSE 68; RESP 16; O2SAT 95
[2016-08-10 08:10] VITALS: BP 101/66; PULSE 68; RESP 16; O2SAT 98
[2016-08-10 08:25] VITALS: BP 127/77; PULSE 56; RESP 16; O2SAT 95
--- NOTE | 2016-08-10 12:49 | OPNOTEF ---
DATE OF PROCEDURE: 08/10/2016 PHYSICIAN: Fernando Cohen DO PROCEDURE: Colonoscopy. INDICATION FOR PROCEDURE Colorectal cancer screening. ASA CLASSIFICATION: 3 DESCRIPTION OF PROCEDURE Consent was signed and on the chart. Routine monitoring with ECG, continuous oximetry and noninvasive blood pressure was performed throughout the procedure and found to be within normal limits. IV sedation was performed with a nurse instructor dancing. He was also given 600 mg of clindamycin prior to the procedure. Prior to the procedure, the patient was brought to the endoscopy lab where a brief review of his medical history and physical exam was performed. The procedure was described to him and he was agreeable to continue. All questions were answered. He was given IV sedation and placed in left lateral decubitus position. A digital rectal exam revealed a normal size and contour prostate. No masses. The colonoscope was introduced through the anal verge and advanced to the cecum. Upon reaching the cecum, careful inspection of the mucosa was performed. At the level of the cecum, there was a small polyp that was removed by cold forceps. The remainder of the ascending, transverse, descending and sigmoid colon was free of pathology. At the level of 10-20 cm, there were multiple small polyps that were also removed with a cold forceps. He tolerated the procedure well. There were no complications. IMPRESSION 1. Polyp at the cecum, removed. 2. Small polyps from 10-20 cm, removed. RECOMMENDATIONS 1. Review the path report. 2. Repeat as indicated. MTDD
== END 2016-08-10 08:45 | disposition home or self-care (01) ==
LOC: NSC 06:05
PROVIDERS: ATTEND Internal Medicine
DX: Z12.11 Encounter for screening for malignant neoplasm of colon (principal); D12.0 Benign neoplasm of cecum; E66.9 Obesity, unspecified; Z68.43 Body mass index [BMI] 50.0-59.9, adult; I10 Essential (primary) hypertension; I48.91 Unspecified atrial fibrillation; Z79.82 Long term (current) use of aspirin; Z79.899 Other long term (current) drug therapy
CPT/HCPCS: 45380; J2250; J2704; J3010; J7120; 88305